=== PATIENT | male | born 1945 | race Caucasian/White ===

== ENCOUNTER 2017-11-21 11:01 | Emergency (ER) | payer OTHER, BC ==
[~2017-11-21] VITALS: Ht 167.6 cm; Wt 76.2 kg
[~2017-11-21 11:01] MED LIST: MOTRIN600 MG PO; NEXIUM40 MG PO; TRANDOLAPRIL4 MG PO; VICODIN 5-3001 EACH PO
[2017-11-21 13:47] VITALS: BP 114/97
== END 2017-11-21 13:52 | disposition home or self-care (01) ==
LOC: EME 11:01 → EXP 11:01
PROC: 0HBQXZZ Excision of Finger Nail, External Approach (ICD-10-PCS; principal; 2017-11-21)
DX: S61.314A Laceration without foreign body of right ring finger with damage to nail, initial encounter (principal); W27.8XXA Contact with other nonpowered hand tool, initial encounter; K21.9 Gastro-esophageal reflux disease without esophagitis; F17.200 Nicotine dependence, unspecified, uncomplicated
CPT/HCPCS: 73130; 99281; 99284; S0020